=== PATIENT | female | born 1985 | race Caucasian/White ===

== ENCOUNTER 2018-08-12 08:14 | Inpatient (IN) | payer BC ==
[~2018-08-12] VITALS: Ht 167.6 cm; Wt 83.2 kg
[~2018-08-12 08:14] MED LIST: DOCU100C33 PO; HYDR-3240 PO; IBUP-1222 PO; PREN1TAB56 PO
[2018-08-12] MEDS ORDERED: OXYTOCIN 30U/ 0.9% NaCL 500ML 500 ML IV ONE (08:47)
[2018-08-12] MEDS ORDERED: LACTATED RINGERS 1,000 ML IV SCH ×2 (08:47→09:20)
[2018-08-12] MEDS ORDERED: OXYTOCIN 30U/ 0.9% NaCL 500ML 500 ML IV PRN (08:47)
[2018-08-12] MEDS ORDERED: OXYTOCIN 30U/ 0.9% NaCL 500ML 500 ML ONE (08:57)
[2018-08-12] MEDS ORDERED: MISOPROSTOL 200 MCG TABLET ONE (08:57)
[2018-08-12] MEDS ORDERED: NEWBORN KIT ONE (08:57)
[2018-08-12] MEDS ORDERED: FENTANYL PF 100 MCG/2ML IVPush PRN (09:00)
[2018-08-12] MEDS ORDERED: ONDANSETRON 2MG/ML, 2ML IVPush PRN (09:00)
[2018-08-12] MEDS ORDERED: FENTANYL PF 100 MCG/2ML IV PRN (09:00)
[2018-08-12] MEDS ORDERED: FENTANYL PF 100 MCG/2ML ONE ×2 (09:05→10:00)
[2018-08-12 09:16] LABS: BASOPHILS # (AUTO) 0.07 x10^3/uL (0-0.1); BASOPHILS % (AUTO) 1 % (0-1); EOSINOPHILS # (AUTO) 0.17 x10^3/uL (0-0.4); EOSINOPHILS % (AUTO) 1 % (1-7); LYMPHOCYTES # (AUTO) 1.96 x10^3/uL (1-3.4); LYMPHOCYTES % (AUTO) 14 % (22-44); MD NO; MEAN CORPUSCULAR HEMOGLOBIN 30.7 pg (27.0-34.8); MEAN CORPUSCULAR HGB CONC 34.4 g/dL (32.4-35.8); MEAN CORPUSCULAR VOLUME 89.3 fL (80-100); MEAN PLATELET VOLUME 9.2 fL (7.4-10.4); MONOCYTES # (AUTO) 0.63 x10^3/uL (0.2-0.8); MONOCYTES % (AUTO) 5 % (2-9); NEUTROPHILS # (AUTO) 11.07 x10^3/uL (1.8-6.8); NEUTROPHILS % (AUTO) 80 % (42-75); PLATELET COUNT 150 x10^3/uL (130-400); RED BLOOD COUNT 4.38 x10^6/uL (3.82-5.3); RED CELL DISTRIBUTION WIDTH 14.5 % (9.6-15.2)
[2018-08-12] MEDS ORDERED: FENTANYL/BUPIV./NS/PF 250 ML EPIDCONT SCH (09:20)
[2018-08-12] MEDS ORDERED: LACTATED RINGERS 1,000 ML IVBOLUS PRN (09:30)
[2018-08-12] MEDS ORDERED: BUPIVACAINE 0.25% ONE (10:00)
[2018-08-12] MEDS ORDERED: D5%-LACTATED RINGERS 1,000 ML IV SCH (10:00)
[2018-08-12] MEDS ORDERED: FENTANYL PF 500 MCG, BUPIVACAINE/PF 0.5%, 30ML 62.5 ML in SODIUM CHLORIDE 0.9% 177.5 ML EPIDCONT SCH (10:30)
[2018-08-12] MEDS ORDERED: OXYTOCIN 30U/ 0.9% NaCL 500ML 500 ML IV SCH (16:27)
[2018-08-12] MEDS ORDERED: CARBOPROST TROMETHAMINE 250 MCG/ML, 1ML IM PRN (16:30)
[2018-08-12] MEDS ORDERED: OXYcodone/APAP 5/325MG TABLET PO PRN (16:30)
[2018-08-12] MEDS ORDERED: METHYLERGONOVINE 0.2 MG/ML IM PRN (16:30)
[2018-08-12] MEDS ORDERED: ONDANSETRON 2MG/ML, 2ML IV PRN (16:30)
[2018-08-12] MEDS ORDERED: ACETAMINOPHEN 325 MG TABLET PO PRN (16:30)
[2018-08-12] MEDS ORDERED: MISOPROSTOL 200 MCG TABLET PR PRN (16:30)
[2018-08-12 18:02] VITALS: BP 109/70
[2018-08-12 20:30] VITALS: BP 108/72
[2018-08-12] MEDS: OXYcodone/APAP 5/325MG TABLET PO PRN (20:35)
[2018-08-12] MEDS: IBUPROFEN 600 MG TABLET PO PRN (20:35)
[2018-08-13] VITALS: BP 98/56
[2018-08-13] MEDS: OXYcodone/APAP 5/325MG TABLET PO PRN ×4 (00:52→23:13)
[2018-08-13] MEDS: DOCUSATE 100 MG CAPSULE PO PRN ×3 (00:57→23:13)
[2018-08-13 01:10] LABS: BASOPHILS # (AUTO) 0.05 x10^3/uL (0-0.1); BASOPHILS % (AUTO) 0 % (0-1); EOSINOPHILS # (AUTO) 0.05 x10^3/uL (0-0.4); EOSINOPHILS % (AUTO) 0 % (1-7); LYMPHOCYTES # (AUTO) 2.18 x10^3/uL (1-3.4); LYMPHOCYTES % (AUTO) 13 % (22-44); MD NO; MEAN CORPUSCULAR HEMOGLOBIN 31.3 pg (27.0-34.8); MEAN CORPUSCULAR HGB CONC 34.3 g/dL (32.4-35.8); MEAN CORPUSCULAR VOLUME 91.3 fL (80-100); MEAN PLATELET VOLUME 9.3 fL (7.4-10.4); MONOCYTES # (AUTO) 0.78 x10^3/uL (0.2-0.8); MONOCYTES % (AUTO) 5 % (2-9); NEUTROPHILS # (AUTO) 13.85 x10^3/uL (1.8-6.8); NEUTROPHILS % (AUTO) 82 % (42-75); PLATELET COUNT 125 x10^3/uL (130-400); RED BLOOD COUNT 3.39 x10^6/uL (3.82-5.3); RED CELL DISTRIBUTION WIDTH 14.6 % (9.6-15.2)
[2018-08-13 04:00] VITALS: BP 94/63
[2018-08-13] MEDS ORDERED: CALCIUM CARBONATE 500 MG TAB.CHEW ONE (06:13)
[2018-08-13] MEDS: IBUPROFEN 600 MG TABLET PO PRN ×3 (06:15→18:16)
[2018-08-13 06:55] VITALS: BP 90/66
[2018-08-13] MEDS: PRENATAL VIT/IRON/FA 1 EACH TABLET PO SCH (09:00)
[2018-08-13] MEDS: FERROUS SULFATE 325 MG TABLET PO SCH (11:57)
[2018-08-13 12:00] VITALS: BP 103/70
[2018-08-13 16:25] VITALS: BP 103/70
[2018-08-13 20:00] VITALS: BP 104/68
[2018-08-14] MEDS: DOCUSATE 100 MG CAPSULE PO PRN ×2 (04:44→08:34)
[2018-08-14 06:55] VITALS: BP 103/68
[2018-08-14] MEDS: FERROUS SULFATE 325 MG TABLET PO SCH (08:34)
[2018-08-14] MEDS ORDERED: CALCIUM CARBONATE 500 MG TAB.CHEW ONE (08:47)
[2018-08-14] MEDS: PRENATAL VIT/IRON/FA 1 EACH TABLET PO SCH (09:00)
[2018-08-14] MEDS ORDERED: OXYC-302 PO (09:42)
[2018-08-14] MEDS ORDERED: IBUP-1222 PO (09:42)
[2018-08-14] MEDS ORDERED: FERR325T18 PO (09:43)
[2018-08-14] MEDS ORDERED: DOCU-131 PO (09:43)
[2018-08-14] MEDS: IBUPROFEN 600 MG TABLET PO PRN (13:31)
[2018-08-14] MEDS: OXYcodone/APAP 5/325MG TABLET PO PRN (13:31)
== END 2018-08-14 14:04 | disposition home or self-care (01) | DRG 775 ==
LOC: LDOP 08:14 → LDIP 08:47 → 2NW 17:57
PROVIDERS: ADMIT Obstetrics & Gynecology; ATTEND Obstetrics & Gynecology
PROC: 10E0XZZ Delivery of Products of Conception, External Approach (ICD-10-PCS; principal; 2018-08-12)
PROC: 0KQM0ZZ Repair Perineum Muscle, Open Approach (ICD-10-PCS; 2018-08-12)
PROC: 3E0R3BZ Introduction of Anesthetic Agent into Spinal Canal, Percutaneous Approach (ICD-10-PCS; 2018-08-12)
PROC: 00HU33Z Insertion of Infusion Device into Spinal Canal, Percutaneous Approach (ICD-10-PCS; 2018-08-12)
PROC: 10907ZC Drainage of Amniotic Fluid, Therapeutic from Products of Conception, Via Natural or Artificial Opening (ICD-10-PCS; 2018-08-12)
PROC: 0UQMXZZ Repair Vulva, External Approach (ICD-10-PCS; 2018-08-12)
DX: O99.354 Diseases of the nervous system complicating childbirth (principal); G12.9 Spinal muscular atrophy, unspecified; O70.1 Second degree perineal laceration during delivery; Z37.0 Single live birth; Z3A.38 38 weeks gestation of pregnancy; O71.82 Other specified trauma to perineum and vulva; Z88.8 Allergy status to other drugs, medicaments and biological substances
CPT/HCPCS: 36415; 85025; 86850; 86900; G0378; J3010

== ENCOUNTER 2021-05-18 08:25 | Inpatient (IN) | payer OTHER ==
[~2021-05-18] VITALS: Ht 167.6 cm; Wt 90.9 kg
[~2021-05-18 08:25] MED LIST changes: +DOCU-131 PO; +FERR325T18 PO; +HYDR-2214 PO; -HYDR-3240 PO; +OXYC1TAB14 PO
[2021-05-18] MEDS ORDERED: TERBUTALINE 1 MG/ML, 1ML SQ PRN (08:30)
[2021-05-18] MEDS ORDERED: TERBUTALINE 1 MG/ML, 1ML IVPush PRN (08:30)
[2021-05-18] MEDS ORDERED: OXYTOCIN 30U/ 0.9% NaCL 500ML 500 ML IV PRN (08:30)
[2021-05-18] MEDS ORDERED: FENTANYL PF 100 MCG/2ML IV PRN (08:30)
[2021-05-18] MEDS ORDERED: D5%-LACTATED RINGERS 1,000 ML IV SCH (08:30)
[2021-05-18] MEDS ORDERED: ONDANSETRON 2MG/ML, 2ML IVPush PRN (08:30)
[2021-05-18] MEDS ORDERED: OXYTOCIN 30U/ 0.9% NaCL 500ML 500 ML IV ONE (08:30)
[2021-05-18] MEDS ORDERED: SODIUM CITRATE/CITRIC ACID 30 ML UDC PO PRN (08:30)
[2021-05-18] MEDS ORDERED: FENTANYL PF 100 MCG/2ML IVPush PRN (08:30)
[2021-05-18] MEDS ORDERED: METOCLOPRAMIDE 5 MG/ML, 2ML IVPush PRN (08:30)
[2021-05-18] MEDS: LACTATED RINGERS 1,000 ML IV SCH ×2 (08:40→11:57)
[2021-05-18] MEDS ORDERED: NEWBORN KIT ONE (08:52)
[2021-05-18 08:59] LABS: BASOPHILS % (AUTO) 1 % (0-1); EOSINOPHILS % (AUTO) 2 % (1-7); LYMPHOCYTES % (AUTO) 15 % (22-44); MEAN CORPUSCULAR HEMOGLOBIN 29.9 pg (27.0-34.8); MEAN CORPUSCULAR HGB CONC 33.5 g/dL (32.4-35.8); MEAN PLATELET VOLUME 8.8 fL (7.4-10.4); MONOCYTES % (AUTO) 4 % (2-9); NEUTROPHILS % (AUTO) 78 % (42-75); PLATELET COUNT 157 x10^3/uL (130-400); RED BLOOD COUNT 4.32 x10^6/uL (3.82-5.3); RED CELL DISTRIBUTION WIDTH 16.2 % (9.6-15.2)
[2021-05-18 09:43] VITALS: BP 121/57
[2021-05-18] MEDS ORDERED: FENTANYL/BUPIV./NS/PF 250 ML EPIDCONT ONE (12:53)
[2021-05-18] MEDS ORDERED: BUPIVACAINE 0.25% ONE (12:54)
[2021-05-18] MEDS ORDERED: EPHEDRINE 50 MG/ML, 1ML IVPush PRN (13:00)
[2021-05-18] MEDS ORDERED: LACTATED RINGERS 1,000 ML IV SCH (13:00)
[2021-05-18] MEDS ORDERED: NALOXONE 0.4 MG/ML, 1ML IVPush PRN (13:00)
[2021-05-18] MEDS ORDERED: LACTATED RINGERS 1,000 ML IVBOLUS PRN (13:00)
[2021-05-18] MEDS ORDERED: FENTANYL/BUPIV./NS/PF 250 ML EPIDCONT SCH (13:00)
[2021-05-18] MEDS ORDERED: DOCUSATE 100 MG CAPSULE PO PRN (16:30)
[2021-05-18] MEDS ORDERED: OXYcodone/APAP 5/325MG TABLET PO PRN ×2 (16:30)
[2021-05-18] MEDS ORDERED: OXYTOCIN 30U/ 0.9% NaCL 500ML 500 ML IV SCH (16:30)
[2021-05-18] MEDS ORDERED: ACETAMINOPHEN 325 MG TABLET PO PRN (16:30)
[2021-05-18] MEDS ORDERED: MISOPROSTOL 200 MCG TABLET PR PRN (16:30)
[2021-05-18] MEDS ORDERED: ONDANSETRON 2MG/ML, 2ML IV PRN (16:30)
[2021-05-18] MEDS ORDERED: METHYLERGONOVINE 0.2 MG/ML IM PRN (16:30)
[2021-05-18] MEDS ORDERED: IBUPROFEN 600 MG TABLET PO PRN (16:30)
[2021-05-18] MEDS ORDERED: METOCLOPRAMIDE 5 MG/ML, 2ML IV PRN (16:30)
[2021-05-18] MEDS ORDERED: CARBOPROST TROMETHAMINE 250 MCG/ML, 1ML IM PRN (16:30)
[2021-05-18] MEDS ORDERED: SIMETHICONE 80 MG CHEW TAB PO PRN (16:30)
[2021-05-18 19:40] VITALS: BP 95/48
[2021-05-19 01:00] VITALS: BP 96/60
[2021-05-19 01:00] LABS: BASOPHILS % (AUTO) 1 % (0-1); EOSINOPHILS % (AUTO) 1 % (1-7); LYMPHOCYTES % (AUTO) 17 % (22-44); MEAN CORPUSCULAR HEMOGLOBIN 29.8 pg (27.0-34.8); MEAN CORPUSCULAR HGB CONC 33.4 g/dL (32.4-35.8); MONOCYTES % (AUTO) 4 % (2-9); NEUTROPHILS % (AUTO) 77 % (42-75); PLATELET COUNT 157 x10^3/uL (130-400); RED BLOOD COUNT 4.01 x10^6/uL (3.82-5.3); RED CELL DISTRIBUTION WIDTH 15.8 % (9.6-15.2)
[2021-05-19 03:50] VITALS: BP 96/61
[2021-05-19] MEDS: PRENATAL VIT/IRON/FA 1 EACH TABLET PO SCH (09:00)
[2021-05-19 09:05] VITALS: BP 94/60
[2021-05-19 15:30] VITALS: BP 102/66
[2021-05-19 20:00] VITALS: BP 102/66
[2021-05-20] MEDS: PRENATAL VIT/IRON/FA 1 EACH TABLET PO SCH (09:00)
== END 2021-05-20 15:00 | disposition home or self-care (01) | DRG 807 ==
LOC: LDIP 08:25 → 2NW 19:40
PROVIDERS: ADMIT Obstetrics & Gynecology; ATTEND Obstetrics & Gynecology
PROC: 10E0XZZ Delivery of Products of Conception, External Approach (ICD-10-PCS; principal; 2021-05-18)
PROC: 0HQ9XZZ Repair Perineum Skin, External Approach (ICD-10-PCS; 2021-05-18)
PROC: 10907ZC Drainage of Amniotic Fluid, Therapeutic from Products of Conception, Via Natural or Artificial Opening (ICD-10-PCS; 2021-05-18)
PROC: 3E033VJ Introduction of Other Hormone into Peripheral Vein, Percutaneous Approach (ICD-10-PCS; 2021-05-18)
PROC: 3E0R3BZ Introduction of Anesthetic Agent into Spinal Canal, Percutaneous Approach (ICD-10-PCS; 2021-05-18)
PROC: 00HU33Z Insertion of Infusion Device into Spinal Canal, Percutaneous Approach (ICD-10-PCS; 2021-05-18)
DX: O99.354 Diseases of the nervous system complicating childbirth (principal); Z37.0 Single live birth; O70.0 First degree perineal laceration during delivery; Z3A.39 39 weeks gestation of pregnancy; Z82.49 Family history of ischemic heart disease and other diseases of the circulatory system; G43.909 Migraine, unspecified, not intractable, without status migrainosus; Z20.822 Contact with and (suspected) exposure to COVID-19
CPT/HCPCS: 36415; 85025; 86592; 86850; 86900; 87635; G0378; J2590; J7120